=== PATIENT | female | born 1970 | race Caucasian/White ===

== ENCOUNTER 2019-06-07 08:33 | Outpatient (CLI) | payer OTHER, SELFPAY ==
--- NOTE | ~2019-06-07 | MM_ITS ---
EXAMINATION: MM screening rylee BI w ramon HISTORY: Screening mammogram TECHNIQUE: Craniocaudal and mediolateral oblique 3-D tomosynthesis images were obtained and synthetic 2-D images were generated. CAD analysis was submitted and interpreted. COMPARISON: 09/29/2016 BREAST PARENCHYMAL COMPOSITION: The breasts are heterogeneously dense, which may obscure small masses . FINDINGS: There is no evidence of suspicious mass, calcification, or architectural distortion to sugg est malignancy in either breast. There has been no suspicious interval change. IMPRESSION: 1. No mammographic evidence of malignancy. 2. Recommend routine screening mammography in one year. BI-RADS Category 1: Negative Reviewed, dictated and finalized at location A. 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
== END 2019-06-07 08:34 | disposition home or self-care (01) ==
LOC: CHSIMG 08:35
PROVIDERS: PCP Nurse Practitioner Family; Visit Provider Nurse Practitioner Family
DX: Z12.31 Encounter for screening mammogram for malignant neoplasm of breast (principal)
CPT/HCPCS: 77063; 77067

== ENCOUNTER 2020-05-29 11:01 | Outpatient (NON) | payer OTHER, SELFPAY | END 2020-05-29 11:02 | LOC: CHSLAB 11:02 | PROVIDERS: Visit Provider Nurse Practitioner Family | DX: Z12.4 Encounter for screening for malignant neoplasm of cervix (principal) | CPT/HCPCS: 87480; 87510; 87624; 87625; 87660; 88175; G0145 ==

== ENCOUNTER 2020-06-21 11:27 | Emergency (ER) | payer OTHER, SELFPAY ==
--- NOTE | ~2020-06-21 | CT_ITS ---
EXAMINATION: CT knee LT wo con EXAM DATE: 06/21/2020 12:08 INDICATION: Initial encounter following injury, with pain of the left knee. Fracture. TECHNIQUE: Spiral CT knee LT wo con was performed without contrast. Axial, coronal and sagittal rachana ges were reviewed. The dose-length product (DLP) for this examination was 464.90 mGy-cm. The exposu re was tailored according to patient size (auto mA exposure control), and iterative reconstruction (A SIR) was used as additional dose reduction technique. There is no prior study for comparison. FINDINGS: There is acute closed posttraumatic fracture at the posterior aspect left lateral tibial pl ateau, essentially nondisplaced. There is a moderate-sized knee joint effusion/hemarthrosis. The fibu la, femur, patella are intact. Musculature is unremarkable. Only small amount of subcutaneous edema. IMPRESSION: Acute nondisplaced left tibial lateral plateau fracture posteriorly. Effusion/hemarthros is. Reviewed, dictated and finalized at location A. 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 Effusion/hemarthrosis.
[2020-06-21 11:35] VITALS: BP 136/96; PULSE 86; RESP 20; TEMP 36.7; O2SAT 95
[2020-06-21] MEDS: KETOROLAC (*BKC) 60 MG/2 ML VIAL IM (12:21)
[2020-06-21] MEDS: DEXAMETHASONE 4 MG TABLET 12 MG PO (12:21)
--- NOTE | 2020-06-21 12:53 | ED.LOWEXIN ---
HPI - Extremity Injury (Lower) General Chief Complaint: Extremity Injury, Lower Stated Complaint: Left Knee Source: patient Mode of arrival: ambulatory Limitations: no limitations History of Present Illness HPI Narrative: Patient states she jumped off something about 3-4 foot high yesterday. Since the jump she has had pain below her left knee, and also lateral and superior to the left knee. Pain has been sharp, moderately severe and ongoing. Pain has not been relieved by otc ibuprofen. Pain is worse with activity, weight bearing, decreased with rest. Place: home Severity: moderate Relieving factors: rest Exacerbating factors: weight bearing Context: jumping Associated symptoms: swelling Other symptoms: none Treatments prior to arrival: NSAIDS Related Data Home Medications Medication Instructions Recorded Confirmed bupropion HCl 300 mg PO DAILY 06/21/20 06/21/20 doxycycline hyclate 100 mg PO DAILY 06/21/20 06/21/20 famotidine 40 mg PO DAILY 06/21/20 06/21/20 Allergies Allergy/AdvReac Type Severity Reaction Status Date / Time salicylates Allergy Intermediate unknown Verified 06/10/20 10:11 Review of Systems Constitutional: Constitutional: Reports no additional constitutional complaints Eyes: Eyes: Reports no additional eye complaints ENT: Reports system reviewed and no additional complaints, except as documented Cardiovascular: Cardiovascular: Reports no additional cardiovascular complaints Respiratory: Respiratory: Reports no additional respiratory complaints Gastrointestinal: Gastrointestinal: Reports no additional gastrointestinal complaints Genitourinary: Genitourinary: Reports no additional female genitourinary complaints Musculoskeletal: Musculoskeletal: Reports no additional musculoskeletal complaints Integumentary/Breasts: Skin/Breast: Reports system reviewed and no additional complaints, except as docu Neurologic: Reports system reviewed and no additional complaints, except as documented Psychiatric: Psychiatric: Reports no additional psychiatric complaints Endocrine: Endocrine: Reports no additional endocrine complaints Hematologic/Lymphatic: Hematologic/Lymphatic: Reports no additional hematologic/lymphatic complaints Allergic/Immunologic: Allergic/Immunologic: Reports no additional allergic/immunologic complaints PMFSH Past Medical History Medical History Chronic back pain Depression Hidradenitis suppurativa HPV (human papilloma virus) infection No active medical problems Overweight Tobacco dependence Vaginal delivery x 2 Surgical History Surgical History H/O bladder repair surgery H/O section History of cholecystectomy History of tubal ligation Family History Family History Father , father of some type of cancer Cerebrovascular accident Mother Hypertension Social History Social History Smoking status: Current every day smoker Additional smoking assessment comments: smokes 1 pack per day Substance use type: does not use Gender identity (if verbalized by the patient): Female Exam Const: General: no acute distress and alert Orientation/consciousness: patient oriented x3 HENMT: Head: normal to inspection Ears: external ears normal and TM's normal bilaterally General nose exam: Normal external nose present Face and sinus: normal facial exam Mouth: Yes moist mucous membranes Throat: posterior oropharynx normal Eyes: Conjunctivae: conjunctivae normal Neck: Neck: normal visual inspection and no lymphadenopathy Chest: Chest palpation & inspection: normal inspection of the chest Resp: Effort & Inspection: normal respiratory effort Auscultation: clear to auscultation bilaterally Cardio: Rate: regular rate Rhythm: regular rhythm GI
[2020-06-21 13:20] VITALS: RESP 17
== END 2020-06-21 13:20 | disposition home or self-care (01) ==
PROVIDERS: Emergency Provider Emergency Medicine; PCP Nurse Practitioner Family
DX: S82.142A Displaced bicondylar fracture of left tibia, initial encounter for closed fracture (principal); W17.89XA Other fall from one level to another, initial encounter
CPT/HCPCS: 73700; 96372; 99283; 99284; J1885; J8540; L1830

== ENCOUNTER 2020-07-06 07:50 | Outpatient (CLI) | payer OTHER, SELFPAY ==
--- NOTE | ~2020-07-06 | MMUS_ITS ---
EXAMINATION: MM diagnostic rylee BI w ramon, US breast RT limited HISTORY: Palpable lump in the upper outer quadrant of the right breast TECHNIQUE: Craniocaudal, mediolateral, and mediolateral oblique 3-D tomosynthesis images of the katharina ts were performed and synthetic 2-D images were generated. CAD analysis was submitted and interpreted . High resolution limited right breast ultrasound was performed. COMPARISON: 06/07/2019, 09/29/2016 BREAST PARENCHYMAL COMPOSITION: The breasts are heterogeneously dense, which may obscure small masses . FINDINGS: MAMMOGRAPHIC FINDINGS: There is no evidence of suspicious mass, calcification, or architectural distortion in either breast to suggest malignancy. There has been no suspicious interval change. No mammographic correlate is id entified for the reported palpable abnormality of the right breast. ULTRASOUND: There is a 3 mm x 2 mm hypoechoic mass involving the skin at the 10:00 location 6 cm from the nipple in the area of the patient's palpable abnormality. There appears to be a thin tract to the skin surfa ce, findings are most consistent with a sebaceous cyst. IMPRESSION: 1. Imaging findings consistent with sebaceous cyst of the right breast corresponding to the palpable abnormality of concern. No mammographic or sonographic evidence of malignancy. Further evaluation at this time should be based on clinical assessment. Continued follow-up physical examination is recomme nded. 2. Recommend routine screening mammography in one year. BI-RADS Category 2: Benign finding(s). Reviewed, dictated and finalized at location A. IMPRESSION: 1. Imaging findings consistent with sebaceous cyst of the right breast correspo nding to the palpable abnormality of concern. No mammographic or sonographic ev idence of malignancy. Further evaluation at this time should be based on clinic al assessment. Continued follow-up physical examination is recommended. 2. Recommend routine screening mammography in one year. BI-RADS Category 2: Benign finding(s).
--- NOTE | ~2020-07-06 | US_ITS ---
EXAMINATION: US pelvic complete w TV DATE: 07/06/2020 09:23 INDICATION: Pelvic and perineal pain Comparison:No prior studies for comparison. TECHNIQUE: Multiple transabdominal and endovaginal sonographic images of the pelvis performed. FINDINGS: The uterus measures 7.4 x 3.9 x 4.7 cm. There is a nabothian cysts. The endometrial complex measures 6 mm. The right ovary measures 2.1 x 2.3 x 1.2 cm and the left ovary measures 2.4 x 1.2 x 1.8 cm. There ar e small follicles in each ovary. Normal doppler signal in both ovaries. There is no free fluid in the pelvis. There are no abnormal masses seen on either side. IMPRESSION: 1. Unremarkable pelvic ultrasound. Reviewed, dictated and finalized at location A.
== END 2020-07-06 07:51 | disposition home or self-care (01) ==
LOC: CHSIMG 07:53
PROVIDERS: PCP Nurse Practitioner Family; Visit Provider Student in an Organized Health Care Education/Training Program
DX: N63.10 Unspecified lump in the right breast, unspecified quadrant (principal)
CPT/HCPCS: 76642; 76830; 76856; 77062; 77066; G0279

== ENCOUNTER 2020-07-27 08:25 | Outpatient (CLI) | payer OTHER, SELFPAY ==
--- NOTE | ~2020-07-27 | XR_ITS ---
EXAMINATION: XR knee LT 2V DATE: 07/27/2020 08:40 INDICATION: Left knee pain. TECHNIQUE: 2 views of left knee were obtained. COMPARISON: None. FINDINGS: Bone alignment is normal. No fracture. There is mild osteoarthritis of patellofemoral cynthia rtment. No knee joint effusion. IMPRESSION: 1. Mild left knee osteoarthritis. Reviewed, dictated and finalized at location A.
== END 2020-07-27 08:26 | disposition home or self-care (01) ==
LOC: CHSIMG 08:27
PROVIDERS: PCP Nurse Practitioner Family; Visit Provider Orthopaedic Surgery
DX: M25.562 Pain in left knee (principal)
CPT/HCPCS: 73560

== ENCOUNTER 2020-08-31 07:57 | Outpatient (CLI) | payer OTHER, SELFPAY ==
--- NOTE | ~2020-08-31 | XR_ITS ---
XR knee LT 3V DATE: 08/31/2020 08:27 INDICATION: Fall 2 weeks ago. Left knee pain. History of left knee fracture 2 months ago TECHNIQUE: 3 views COMPARISON: 07/27/2020 left knee FINDINGS: No fracture or dislocation or joint effusion. No periosteal reaction or bone destruction, j oint space narrowing, radiopaque intra-articular loose body or chondrocalcinosis. Relatively well pre served. IMPRESSION: No significant abnormality of left knee Reviewed, dictated and finalized at location B.
== END 2020-08-31 07:58 | disposition home or self-care (01) ==
LOC: CHSIMG 07:59
PROVIDERS: PCP Nurse Practitioner Family; Visit Provider Orthopaedic Surgery
DX: M25.562 Pain in left knee (principal)
CPT/HCPCS: 73562

== ENCOUNTER 2020-12-02 10:21 | Outpatient (CLI) | payer OTHER, SELFPAY ==
--- NOTE | ~2020-12-02 | XR_ITS ---
EXAMINATION: XR knee LT 3V DATE: 12/02/2020 10:46 INDICATION: Left knee pain. TECHNIQUE: 3 views of left knee were obtained. COMPARISON: Left knee radiographs 08/31/2020 FINDINGS: Bone alignment is normal. No fracture. There is mild tricompartmental osteoarthritis charac terized by tiny marginal osteophytes. No knee joint effusion. IMPRESSION: 1. Mild left knee osteoarthritis. Reviewed, dictated and finalized at location B.
== END 2020-12-02 10:22 | disposition home or self-care (01) ==
LOC: CHSIMG 10:23
PROVIDERS: PCP Nurse Practitioner Family; Visit Provider Nurse Practitioner Family
DX: M25.562 Pain in left knee (principal)
CPT/HCPCS: 73562

== ENCOUNTER 2020-12-08 08:43 | Outpatient (RCR) | payer OTHER, SELFPAY ==
--- NOTE | 2020-12-08 09:56 | PTOPEVAL ---
Thank you for referring Suzanna Pulido to [facility].? The patient is scheduled to be seen for therapy? ____x/week for ___ weeks. Please review, sign, date and return this plan of care SANDRA. I agree with and certify that the following plan of care is medically necessary. Referring Physician Date Admitting Provider: Attending Provider: Angélica Cardona NP Referring Provider: *PT Outpatient Evaluation Start: 12/08/20 08:49 Freq: Status: Active Protocol: Document 12/08/20 08:49 ACR (Rec: 12/08/20 09:51 ACR [id number]) Therapy Assessment Status Assessment Status Assessment Status Evaluation Outpatient Past Medical History Respiratory History Hx Asthma Yes Hx Bronchitis Yes Hx Pleurisy Yes Gastrointestinal History Hx Cholecystectomy Yes Genitourinary History Hx Bladder Surgery Yes Musculoskeletal History Hx Arthritis Yes Hx Orthopedic Surgery Yes: HAND Integumentary History Hx Excision Skin Lesion Yes Reproductive History Hx Section Yes Hx Post Menopausal Yes Psychosocial History Hx Anxiety Yes Other History Hx MRSA Yes Evaluation Information Problem Diagnosis pain in L knee Onset 08/08/20 Subjective Information Patient states that she was Query Text:As Reported By Patient/ putting up gutters and jumped Family down and then fractured her tibia. She states that in the past 2 weeks her groin is started to bother her. She is having trouble turning over in bed because of the pain. The patient states that standing/ walking and sitting for a period of time cause the most pain. She states stairs are difficult as well. She has tried all home remedies and nothing takes the pain away. She got a recent x-ray which showed healing of the tibia plateau. Patient states her goal for therapy is for the pain to subside. 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
--- NOTE | 2021-03-09 11:46 | PTOPEVAL ---
Thank you for referring Suzanna Pulido to [facility].? I agree with and certify that the following plan of care is medically necessary. Referring Physician Date Admitting Provider: Attending Provider: Angélica Cardona NP Referring Provider: *PT Outpatient Evaluation Start: 12/08/20 08:49 Freq: Status: Active Protocol: Document 03/09/21 10:38 SAPNA (Rec: 03/09/21 11:45 SAPNA [id number]) Therapy Assessment Status Assessment Status Assessment Status Discharge Outpatient Past Medical History Neurological History Hx Neurological Disorders No Significant History Cardiovascular History Hx Cardiac Disorders No Significant History Respiratory History Hx Respiratory Disorders No Significant History Gastrointestinal History Hx Cholecystectomy Yes Hx Hemorrhoids Yes Genitourinary History Hx Bladder Surgery Yes Musculoskeletal History Hx Arthritis Yes Hx Fractures Yes: L. knee Hx Orthopedic Surgery Yes: R. hand Hx Other Musculoskeletal Disorders Yes: bulging disc L4 & L5 Hematological History Hx Hematological Disorders No Significant History Endocrine History Hx Endocrine Disorders No Significant History HEENT History Hx HEENT Disorders No Significant History Integumentary History Hx Excision Skin Lesion Yes: cyst on r. breast Reproductive History Hx Section Yes Hx Post Menopausal Yes Psychosocial History Hx Anxiety Yes Hx Depression Yes Pain History Has Past Pain Affected Your Daily Life Yes: back Evaluation Information Problem Diagnosis left knee pain Onset 08/08/20 Subjective Information Pt. reports that she has been Query Text:As Reported By Patient/ dealing with COVID issues Family amongst multiple family members which has kept her from participating in therapy. She reports that the knee has not improved much, but does not recall doing her HEP at all. She reports she has been caring for her mother making it difficult to make time for exercise. She reports that pain continues to be most notable with standing and walking, but states that she will experience pain at rest. She also continues to describe
== END 2021-03-09 13:40 | disposition home or self-care (01) ==
LOC: CHSPT 08:43
PROVIDERS: PCP Nurse Practitioner Family; Visit Provider Nurse Practitioner Family
DX: M25.562 Pain in left knee (principal)
CPT/HCPCS: 97014; 97110; 97161; G0283

== ENCOUNTER 2021-02-01 09:48 | Outpatient (CLI) | payer OTHER, SELFPAY ==
[2021-02-01 11:15] LABS: SARS-CoV-2 RNA PCR Negative (Negative)
== END 2021-02-01 09:49 | disposition home or self-care (01) ==
LOC: CHSLAB 09:51
PROVIDERS: PCP Nurse Practitioner Family; Visit Provider Nurse Practitioner Family
DX: Z20.822 Contact with and (suspected) exposure to COVID-19 (principal)
CPT/HCPCS: C9803; U0003; U0005

== ENCOUNTER 2021-03-16 13:30 | Outpatient (CLI) | payer OTHER, SELFPAY ==
--- NOTE | ~2021-03-16 | XR_ITS ---
XR hip LT min 2V 03/16/2021 14:01 Indication: Left hip pain Procedure: 2 views left hip Comparison: No prior studies for comparison. Findings: There is mild-moderate osteoarthritis of the left hip. No fracture, subluxation or dislocat ion. No significant soft tissue abnormality. No foreign bodies. Impression: 1: Mild-moderate osteoarthritis of the left hip. Reviewed, dictated and finalized at location A. GER ORGANIZATIONAL Impression: 1: Mild-moderate osteoarthritis of the left hip.
--- NOTE | ~2021-03-16 | XR_ITS ---
EXAMINATION: XR lumbar spine 2-3V DATE: 03/16/2021 14:00 INDICATION: Low back pain. TECHNIQUE: 3 views of lumbar spine were obtained. COMPARISON: Lumbar spine radiograph 09/15/2016, lumbar spine MRI 02/10/2018 FINDINGS: There is 4 degrees dextrocurvature of lumbar spine. There is 4 mm anterolisthesis of L4 on L5. Vertebral body heights are normal. There is moderately decreased disc height at L4-L5. There are endplate osteophytes at most levels. There is multilevel facet joint osteoarthritis, severe bilateral ly at L4-L5 and L5-S1. Surgical clips in the right upper quadrant are likely from cholecystectomy. IMPRESSION: 1. Moderate lower lumbar spondylosis. Reviewed, dictated and finalized at location A. [employer] TECH
== END 2021-03-16 13:31 | disposition home or self-care (01) ==
LOC: CHSIMG 13:32
PROVIDERS: PCP Nurse Practitioner Family; Visit Provider Nurse Practitioner Family
DX: M25.552 Pain in left hip (principal); M54.50 Low back pain, unspecified
CPT/HCPCS: 72100; 73502

== ENCOUNTER 2021-08-12 10:18 | Outpatient (CLI) | payer OTHER, SELFPAY ==
[2021-08-12 11:20] LABS: SARS-CoV-2 RNA PCR Negative (Negative)
== END 2021-08-12 10:19 | disposition home or self-care (01) ==
LOC: CHSLAB 10:21
PROVIDERS: PCP Nurse Practitioner Family; Visit Provider Nurse Practitioner Family
DX: Z20.822 Contact with and (suspected) exposure to COVID-19 (principal)
CPT/HCPCS: C9803; U0003; U0005

== ENCOUNTER 2021-09-07 08:33 | Outpatient (CLI) | payer OTHER, SELFPAY ==
--- NOTE | ~2021-09-07 | MM_ITS ---
EXAMINATION: MM screening rylee BI w ramon HISTORY: Screening mammogram TECHNIQUE: Craniocaudal and mediolateral oblique 3-D tomosynthesis images were obtained and synthetic 2-D images were generated. CAD analysis was submitted and interpreted. COMPARISON: 07/06/2020 bilateral diagnostic mammography and limited right breast ultrasound 06/07/2019, 09/29/2016 bilateral screening mammogram examinations BREAST PARENCHYMAL COMPOSITION: There are scattered areas of fibroglandular density. FINDINGS: Subtle small focal asymmetry is noted in the upper mid right breast; otherwise there is no evidence of suspicious mass, calcification, or architectural distortion to suggest malignancy in eith er breast. There has been no other suspicious interval change. IMPRESSION: 1. Subtle small asymmetry in upper mid right breast 2. Diagnostic right mammogram is recommended, with ultrasound if required BI-RADS Category 0: Incomplete: Needs additional imaging evaluation. Reviewed, dictated and finalized at location A.
== END 2021-09-07 08:34 | disposition home or self-care (01) ==
LOC: CHSIMG 08:34
PROVIDERS: PCP Nurse Practitioner Family; Visit Provider Student in an Organized Health Care Education/Training Program
DX: Z12.31 Encounter for screening mammogram for malignant neoplasm of breast (principal)
CPT/HCPCS: 77063; 77067

== ENCOUNTER 2021-09-21 08:53 | Outpatient (CLI) | payer OTHER, SELFPAY ==
--- NOTE | ~2021-09-21 | MM_ITS ---
EXAMINATION: MM diagnostic rylee RT w ramon HISTORY: Right breast asymmetry on screening mammogram TECHNIQUE: Additional 3-D tomosynthesis images of the right breast were performed and synthetic 2-D i mages were generated. CAD analysis was submitted and interpreted. COMPARISON: 09/07/2021, 07/06/2020, 06/07/2019 FINDINGS: There is a return to baseline fibroglandular appearance with spot compression of the right breast in the area questioned on screening mammogram. IMPRESSION: 1. No mammographic evidence of malignancy. 2. Recommend routine screening mammography in one year. BI-RADS Category 1: Negative Reviewed, dictated and finalized at location A.
== END 2021-09-21 08:54 | disposition home or self-care (01) ==
LOC: CHSIMG 08:54
PROVIDERS: PCP Nurse Practitioner Family; Visit Provider Student in an Organized Health Care Education/Training Program
DX: R92.8 Other abnormal and inconclusive findings on diagnostic imaging of breast (principal)
CPT/HCPCS: 77061; 77065; G0279

== ENCOUNTER 2021-10-25 03:10 | Day surgery (SDC) | payer OTHER, SELFPAY ==
[2021-10-08 15:08] VITALS: BMI 35.5
--- NOTE | 2021-10-25 07:07 | P.PNAN_ITS ---
Anes - Initial Pre Proc Eval Procedure: Operation Date: 10/25/21 08:30 Proposed Procedures p Screening Colonoscopy - Bryce Schmidt MD Date/Time: 10/25/21 07:07 Surgeon: Bryce Schmidt MD Pre Op Diagnosis: neoplasm screening Patient Data Age: 51 Gender: F Height: 1.6 m Weight: 91 kg Allergies Allergy/AdvReac Type Severity Reaction Status Date / Time No Known Allergies Allergy Verified 10/25/21 07:37 Home Medications Medication Instructions Recorded Confirmed Type bupropion HCl 300 mg 24 hr tablet, See Rx Instructions .Route 04/19/21 10/25/21 Rx extended release .COMPLEX #90 tabs omeprazole 20 mg capsule,delayed See Rx Instructions .Route 04/19/21 10/25/21 Rx release .COMPLEX #30 caps nicotine 10 mg/mL nasal spray 1 spray intranasal Q20M PRN 08/18/21 10/25/21 Rx (Nicotrol NS) nicotine cravings #40 mL famotidine 40 mg tablet 40 tablet PO DAILY 10/08/21 10/25/21 History Patient hx anesthesia problems: none Family hx anesthesia problems: none Results Review: All pre-operative results and documents have been reviewed as part of the pre- operative evaluation. [facility] Past Medical History Medical History (Updated 10/25/21 @ 08:33 by Bryce Schmidt MD) Abnormal cervical Papanicolaou smear 06/10/20 LSIL Anxiety Chronic back pain Depression GERD (gastroesophageal reflux disease) Hidradenitis suppurativa HPV (human papilloma virus) infection Overweight Tobacco dependence Vaginal delivery x 2 Surgical History Surgical History H/O bladder repair surgery H/O section x1 History of cholecystectomy History of tubal ligation Family History Family History Father , father of some type of cancer Cerebrovascular accident Mother Hypertension Social History Social History Smoking packs per day: 1 Smoking cigarettes per day: 20.0 Years smoked: 30 Smoking pack-years: 30.00 Smoking status: Current every day smoker Tobacco type: cigarettes Additional smoking assessment comments: smokes 1 pack per day Alcohol intake: never Alcohol use details: denies alcohol use Substance use: never Substance use type: does not use Living arrangements: with family Gender identity (if verbalized by the patient): Female Sexual Orientation (if Verbalized by the Patient): Straight or Heterosexual Spiritual care concerns: No Anes - Eval Final PreProcedure Day of Procedure 10/25/21 07:07 Patient weight: obese Heart: regular rate and rhythm Lungs: clear to auscultation Airway: Mallampati scale class II Neurological: alert and oriented Last oral intake: >/= 8 hours ASA classification: III Emergent: no Anesthetic plan: proceed Anesthesia type and monitoring: general GIVS and standard monitoring Results Review: All pre-operative results and documents have been reviewed as part of the pre- operative evaluation. Informed Consent: The patient's anesthetic plan and its attendant risks and benefits were discussed with the patient/family/POA. Questions were solicited and answers provided to the satisfaction of the patient/family/POA.
[2021-10-25] MEDS: LACTATED RINGERS 1,000 ML 150 ML IV CONT (07:45)
[2021-10-25 07:46] VITALS: BP 127/74; PULSE 65; RESP 16; TEMP 36.1; O2SAT 100; BMI 35.4
--- NOTE | 2021-10-25 08:32 | WPDGICN ---
Assessment and Plan Assessment and plan (1) Family history of colonic polyps: Code(s): Z83.71 - Family history of colonic polyps Status: Acute Assessment and Plan: Patient has a family history of colon polyps in her mother and colon cancer in her grandmother. Suggest follow-up colonoscopy at 5 year intervals. Further recommendations may be given after endoscopy. GI Consult Note Consult date/time: 10/25/21 08:32 Reason for consult: Neoplasia screening. HPI: Suzanna Pulido is a 51 year old female Presents for screening colonoscopy. Patient reports that her current weight appetite and bowel movements are normal. She denies abdominal pain. She has had no bleeding. Family history is significant that her mother had colon polyps in her grandmother had colon cancer. Patient presents today for neoplasia screening. Review of Systems Review of Systems: Review of systems noncontributory. [facility] Past Medical History Medical History (Updated 10/25/21 @ 08:33 by Bryce Schmidt MD) Abnormal cervical Papanicolaou smear 06/10/20 LSIL Anxiety Chronic back pain Depression GERD (gastroesophageal reflux disease) Hidradenitis suppurativa HPV (human papilloma virus) infection Overweight Tobacco dependence Vaginal delivery x 2 Surgical History Surgical History H/O bladder repair surgery H/O section x1 History of cholecystectomy History of tubal ligation Family History Family History Father , father of some type of cancer Cerebrovascular accident Mother Hypertension Social History Social History Smoking packs per day: 1 Smoking cigarettes per day: 20.0 Years smoked: 30 Smoking pack-years: 30.00 Smoking status: Current every day smoker Tobacco type: cigarettes Additional smoking assessment comments: smokes 1 pack per day Alcohol intake: never Alcohol use details: denies alcohol use Substance use: never Substance use type: does not use Living arrangements: with family Gender identity (if verbalized by the patient): Female Sexual Orientation (if Verbalized by the Patient): Straight or Heterosexual Spiritual care concerns: No Meds Home Medications and Allergies Home Medications Medication Instructions Recorded Confirmed Type bupropion HCl 300 mg 24 hr tablet, See Rx Instructions .Route 04/19/21 10/25/21 Rx extended release .COMPLEX #90 tabs omeprazole 20 mg capsule,delayed See Rx Instructions .Route 04/19/21 10/25/21 Rx release .COMPLEX #30 caps nicotine 10 mg/mL nasal spray 1 spray intranasal Q20M PRN 08/18/21 10/25/21 Rx (Nicotrol NS) nicotine cravings #40 mL famotidine 40 mg tablet 40 tablet PO DAILY 10/08/21 10/25/21 History Allergies Allergy/AdvReac Type Severity Reaction Status Date / Time No Known Allergies Allergy Verified 10/25/21 07:37 Vital Signs Vital Signs - 24 hr 10/25/21 07:46 Temperature 97.0 F L Pulse Rate 65 Respiratory Rate 16 Blood Pressure 127/74 Pulse Oximetry 100 Oxygen Delivery Room Air Exam Narrative: Physical exam reveals patient to be alert. Vital signs stable. HEENT exam is unremarkable. Patient is anicteric. Lungs are clear to auscultation and percussion. Heart is without murmur or extra sounds. Abdominal exam bowel sounds are present soft nontender with no organomegaly. Digital external rectal exam is normal.
[2021-10-25 09:02] VITALS: BP 93/60; PULSE 76; RESP 17; O2SAT 93
[2021-10-25 09:12] VITALS: BP 103/72; PULSE 70; RESP 25; O2SAT 98
[2021-10-25 09:22] VITALS: BP 108/61; PULSE 72; RESP 25; O2SAT 97
== END 2021-10-25 09:40 | disposition home or self-care (01) ==
PROVIDERS: PCP Nurse Practitioner Family; Visit Provider Internal Medicine Gastroenterology
PROC: 0DJD8ZZ Inspection of Lower Intestinal Tract, Via Natural or Artificial Opening Endoscopic (ICD-10-PCS; CPT 45378; principal; 2021-10-25 08:30)
DX: Z12.11 Encounter for screening for malignant neoplasm of colon (principal); D12.5 Benign neoplasm of sigmoid colon; K64.8 Other hemorrhoids; Z83.71 Family history of colonic polyps; K21.9 Gastro-esophageal reflux disease without esophagitis; F17.210 Nicotine dependence, cigarettes, uncomplicated
CPT/HCPCS: 45385; 88305; J2704; J7120

== ENCOUNTER 2021-11-16 08:43 | Outpatient (CLI) | payer OTHER, SELFPAY ==
[2021-11-16 09:49] LABS: SARS-CoV-2 RNA PCR Positive (Negative)
== END 2021-11-16 08:44 | disposition home or self-care (01) ==
LOC: CHSLAB 08:48
PROVIDERS: PCP Nurse Practitioner Family; Visit Provider Nurse Practitioner Family
DX: U07.1 COVID-19 (principal)
CPT/HCPCS: C9803; U0003; U0005

== ENCOUNTER 2021-11-22 08:26 | Outpatient (CLI) | payer OTHER, SELFPAY ==
[2021-11-22 09:25] LABS: SARS-CoV-2 RNA PCR Positive (Negative)
== END 2021-11-22 08:27 | disposition home or self-care (01) ==
LOC: CHSLAB 08:29
PROVIDERS: PCP Nurse Practitioner Family; Visit Provider Nurse Practitioner Family
DX: U07.1 COVID-19 (principal)
CPT/HCPCS: C9803; U0003; U0005

== ENCOUNTER 2022-11-26 08:52 | Outpatient (CLI) | payer OTHER, SELFPAY ==
[2022-11-30 22:48] LABS: Vitamin D 25 Hydroxy 55 ng/mL (30-100)
== END 2022-11-26 08:53 | disposition home or self-care (01) ==
LOC: CHSLAB 08:54
PROVIDERS: PCP Nurse Practitioner Family; Visit Provider Nurse Practitioner Family
DX: E55.9 Vitamin D deficiency, unspecified (principal)
CPT/HCPCS: 36415; 82306

== ENCOUNTER 2023-01-17 10:25 | Outpatient (CLI) | payer OTHER, SELFPAY ==
--- NOTE | ~2023-01-17 | XR_ITS ---
EXAMINATION: XR foot RT min 3V DATE: 01/17/2023 11:08 INDICATION: Right foot pain. TECHNIQUE: 4 views of right foot were obtained. COMPARISON: Right foot radiograph 12/01/2016 FINDINGS: There is mild hallux valgus. No fracture. There is mild osteoarthritis of first metatarsoph alangeal joint and some of the midfoot joints. There is heterotopic ossification distal to medial mal leolus. There are enthesophytes at the posterior and plantar aspects of calcaneal tuberosity. IMPRESSION: 1. Mild particular osteoarthritis. 2. Mild hallux valgus. Reviewed, dictated and finalized at location E.
== END 2023-01-17 10:26 | disposition home or self-care (01) ==
LOC: CHSIMG 10:27
PROVIDERS: PCP Nurse Practitioner Family; Visit Provider Family Medicine
DX: M79.671 Pain in right foot (principal); M19.071 Primary osteoarthritis, right ankle and foot; M20.11 Hallux valgus (acquired), right foot
CPT/HCPCS: 73630

== ENCOUNTER 2023-01-25 08:42 | Outpatient (CLI) | payer OTHER, SELFPAY ==
--- NOTE | ~2023-01-25 | US_ITS ---
EXAMINATION: US pelvic complete w TV DATE: 01/25/2023 09:09 INDICATION: Vaginal spotting. Postmenopausal. Comparison:Ultrasound dated 07/06/2020 TECHNIQUE: Multiple transabdominal and endovaginal sonographic images of the pelvis performed. FINDINGS: The uterus measures 7.6 x 4.7 x 3.4 cm. In the uterus is suboptimally visualized due to pos ition of the uterus and overlying bowel. The endometrial complex measures 6. The ovaries are not visualized. There is no free fluid in the pelvis. There are no abnormal masses seen on either side. IMPRESSION: 1. Thickened endomtrial complex. The differential diagnosis includes endometrial hyperplasia, polyp a nd carcinoma. Biopsy is recommended. Reviewed, dictated and finalized at location B. IMPRESSION: 1. Thickened endomtrial complex. The differential diagnosis includes endometria l hyperplasia, polyp and carcinoma. Biopsy is recommended.
== END 2023-01-25 08:43 | disposition home or self-care (01) ==
LOC: CHSIMG 08:43
PROVIDERS: PCP Nurse Practitioner Family; Visit Provider Family Medicine
DX: N95.0 Postmenopausal bleeding (principal); R93.89 Abnormal findings on diagnostic imaging of other specified body structures
CPT/HCPCS: 76830; 76856

== ENCOUNTER 2023-02-08 02:14 | Day surgery (SDC) | payer OTHER, SELFPAY ==
[2023-01-27 13:10] VITALS: BMI 36.6
--- NOTE | 2023-01-27 13:11 | PC.NURSE ---
Report to the Outpatient Waiting Room, entrance under the green pavilion located off [facility], at time _0600_ on date _[id number]_. Planned Procedure Time: _0730_. Time changes happen often and if your time is changed the preop area will call you the afternoon before. - You and your visitor will be asked to self-screen and do not enter if you have any COVID symptoms. - A mask is optional within the hospital at this time. Patients may have clear liquids (water, carbonated beverages, clear teas, apple juice) until 3 hours prior to surgery with a maximum of 20 ounces. - No food from midnight until time of surgery Take the following medications with a SIP of water the morning of surgery: ____None DO NOT STOP ANY OF YOUR OTHER PRESCRIPTION MEDICATIONS PRIOR TO SURGERY ?EXCEPT THE FOLLOWING Medications to discontinue per physician ____Vitamins Date to take last pekv___[id number] Please no make-up, nail canadian, hairspray, perfume, deodorant, or body powder the day of surgery. No jewelry (including any body piercings) or valuables the day of surgery, leave them at home. Please take a shower or bath the night before, or the morning of, surgery with an antibacterial soap. Wear comfortable, loose fitting clothing. - Jewelry must be removed prior to entering the operating room. Rings and piercings that are not removed may be cut off. - The hospital will not accept responsibility for valuables. - Please leave all valuables, including medications, at home the day of surgery. If you are going home after surgery, a licensed gravel truck driver must drive you home. - NO public transportation without another adult if you receive anesthesia. - We recommend that an adult stay with you for 24 hours following discharge. - We also recommend that you do not drive, make important decision, drink alcoholic beverages, or take any drugs that were not prescribed by your health care provider for at least 24 hours after your discharge time. Follow any additional instructions given to you from your surgeon. If you or anyone in your household have experienced Covid symptoms in the past week, please notify your surgeon or the nurse liaison at the phone number below for possible testing. Telephone instructions given to _Suzanna__and asked if any additional questions and then verbalized understanding. Patient advised to call surgeon office or pre surgery nurse liaison [phone] if any additional questions.
--- NOTE | 2023-02-07 12:49 | WPDANESEPPF ---
Anes - Initial Pre Proc Eval Procedure: Operation Date: 02/08/23 07:30 Proposed Procedures p Hysteroscopy Dilation and Curettage, Removal of any Endometrial Lesion, If necessary - Dexter Tavarez MD Date/Time: 02/07/23 12:49 Surgeon: Dexter Tavarez MD Pre Op Diagnosis: Post Menopausal Bleeding Patient Data Age: 52 Gender: F Height: 1.57 m Weight: 90.9 kg Allergies Allergy/AdvReac Type Severity Reaction Status Date / Time No Known Allergies Allergy Verified 02/08/23 06:08 Home Medications Medication Instructions Recorded Confirmed Type cholecalciferol (vitamin D3) 1,250 1,250 mcg PO WEEKLY #12 caps 09/26/22 02/08/23 Rx mcg (50,000 unit) capsule multivitamin 1 tablet PO DAILY 01/27/23 02/08/23 History Patient hx anesthesia problems: none Family hx anesthesia problems: none Results Review: All pre-operative results and documents have been reviewed as part of the pre-operative evaluation. [facility] Past Medical History Medical History Abnormal cervical Papanicolaou smear 06/10/20 LSIL Anxiety Chronic back pain Depression GERD (gastroesophageal reflux disease) Hidradenitis suppurativa HPV (human papilloma virus) infection Overweight Tobacco dependence Vaginal delivery x 2 Surgical History Surgical History H/O bladder repair surgery H/O section x1 History of cholecystectomy History of tubal ligation Family History Family History Father , father of some type of cancer Cerebrovascular accident Mother Hypertension Social History Social History (Updated 11/09/22 @ 13:31 by Alyssia Polanco) Smoking packs per day: 1 Smoking cigarettes per day: 20.0 Years smoked: 20 Smoking pack-years: 20.00 Smoking status: Current every day smoker Tobacco type: cigarettes Additional smoking assessment comments: smokes 1 pack per day Alcohol intake: never Alcohol use details: denies alcohol use Substance use: never Substance use type: does not use Lack of Transportation: No Lack of Food: Never True Current Housing: I Have Housing Concerned About Future Housing: No Difficulty Paying Gas/Electric Bills: No Difficulty Paying for Meds: No Currently Unemployed: YES Education: Grade School Living arrangements: with family Gender identity (if verbalized by the patient): Female Sexual Orientation (if Verbalized by the Patient): Straight or Heterosexual Spiritual care concerns: No Anes - Eval Final PreProcedure Day of Procedure 02/07/23 12:49 Patient weight: obese Heart: regular rate and rhythm Lungs: clear to auscultation Airway: Mallampati scale class II Neurological: alert and oriented Last oral intake: >/= 8 hours ASA classification: III Emergent: no Anesthetic plan: proceed Anesthesia type and monitoring: general GIVS and standard monitoring Results Review: All pre-operative results and documents have been reviewed as part of the pre-operative evaluation. Informed Consent: The patient's anesthetic plan and its attendant risks and benefits were discussed with the patient/family/POA. Questions were solicited and answers provided to the satisfaction of the patient/family/POA.
[2023-02-08] MEDS: ACETAMINOPHEN 500 MG TABLET 1000 MG PO (06:16)
[2023-02-08] MEDS: LACTATED RINGERS 1,000 ML 30 ML IV CONT (06:28)
[2023-02-08 06:52] VITALS: BP 129/72; PULSE 65; RESP 16; TEMP 36.6; O2SAT 98
--- NOTE | 2023-02-08 07:18 | PM.IMHP ---
H&P: HPI History of Present Illness Date/Time: 02/08/23 07:18 Chief Complaint: Thickened endometrial stripe Narrative: HPI Office Procedure ? She is here for evaluation of postmenopausal bleeding.? She has been postmenopausal since approximately age 48 or before.? She states on January 10 she had a 3 day.? She did have some mild cramping denies any premenstrual symptoms.? She is not sexually active.? She was not doing any other type of vigorous activity.?She did have an ultrasound today she was informed that it did show that the endometrial lining is mildly thickened discussed the normal range that is suspected for post menopause. She was recommended for endometrial sampling and discussed options and she opted for Hysteroscopy D and C and removal of lesion if present. Review of Systems Review of Systems: All systems reviewed & are unremarkable except as noted in HPI and below Cardiovascular: Cardiovascular: Reports no additional cardiovascular complaints, Denies chest pain and Denies dyspnea Respiratory: Respiratory: Reports no additional respiratory complaints and Denies dyspnea Gastrointestinal: Gastrointestinal: Reports abdominal pain, Denies change in bowel habits, Denies diarrhea, Denies nausea and Denies vomiting Genitourinary: Genitourinary: Reports pelvic pain Musculoskeletal: Musculoskeletal: Reports back pain Integumentary/Breasts: Skin/Breast: Reports system reviewed and no additional complaints, except as docu Neurologic: Reports system reviewed and no additional complaints, except as documented PMFSH Past Medical History Medical History Abnormal cervical Papanicolaou smear 06/10/20 LSIL Anxiety Chronic back pain Depression GERD (gastroesophageal reflux disease) Hidradenitis suppurativa HPV (human papilloma virus) infection Overweight Tobacco dependence Vaginal delivery x 2 Surgical History Surgical History H/O bladder repair surgery H/O section x1 History of cholecystectomy History of tubal ligation Family History Family History Father , father of some type of cancer Cerebrovascular accident Mother Hypertension Social History Social History Smoking packs per day: 1 Smoking cigarettes per day: 20.0 Years smoked: 20 Smoking pack-years: 20.00 Smoking status: Current every day smoker Tobacco type: cigarettes Additional smoking assessment comments: smokes 1 pack per day Alcohol intake: never Alcohol use details: denies alcohol use Substance use: never Substance use type: does not use Lack of Transportation: No Lack of Food: Never True Current Housing: I Have Housing Concerned About Future Housing: No Difficulty Paying Gas/Electric Bills: No Difficulty Paying for Meds: No Currently Unemployed: YES Education: Grade School Living arrangements: with family Gender identity (if verbalized by the patient): Female Sexual Orientation (if Verbalized by the Patient): Straight or Heterosexual Spiritual care concerns: No Meds Home Medications and Allergies Home Medications Medication Instructions Recorded Confirmed Type cholecalciferol (vitamin D3) 1,250 1,250 mcg PO WEEKLY #12 caps 09/26/22 02/08/23 Rx mcg (50,000 unit) capsule multivitamin 1 tablet PO DAILY 01/27/23 02/08/23 History Allergies Allergy/AdvReac Type Severity Reaction Status Date / Time No Known Allergies Allergy Verified 02/08/23 06:08 Vital Signs Vital Signs - 24 hr 02/08/23 06:52 Temperature 97.9 F Pulse Rate 65 Respiratory Rate 16 Blood Pressure 129/72 Pulse Oximetry 98 Oxygen Delivery Room Air Exam Const: Orientation/consciousness: oriented to person and oriented to place HENMT: Head: norm
--- NOTE | 2023-02-08 07:21 | WPDHPUPDATE1 ---
History and Physical Update Update Date/Time: 02/08/23 07:21 History and Physical has been reviewed, including an updated exam of the patient. There are NO changes in the patient's condition. Risks, benefits, and alternatives have been discussed and questions answered. Patient agrees to proceed with procedure.
[2023-02-08] MEDS: ceFAZolin 2 GM/D5W 50 ML 2 GM/50 ML BAG IVPB (07:30)
[2023-02-08] MEDS: LIDOCAINE HCL 1% LOCAL INJ 20 ML VIAL 10 ML INFILTRATE (07:48)
--- NOTE | 2023-02-08 07:54 | W.PM.PROC2 ---
Procedure Note - Detailed Date of Procedure 02/08/23 Pre-op Diagnosis Post Menopausal Bleeding Thickened endometrial stripe Post-op Diagnosis Same Procedure Performed Diagnostic hysteroscopy and dilation and currettage Surgeon Dexter Tavarez MD Anesthesia MAC and Local Indications Postmenopausal bleeding and thickened endometrial stripe Findings Uterus sound to 7.5 cm, uterine cavity normal, no lesion, minimal tissue with curettage Description of Procedure After informed consent was obtained patient was taken to the operating room and adequate IV sedation was administered. Attention was turned to the vagina. Speculum was inserted. Single-tooth tenaculum placed on the anterior lip of the cervix. The uterus was sounded to 7.5 cm. The cervix was dilated to an 8 Cochran dilator. The hysteroscope was inserted into the cavity. The findings were a normal uterine cavity. The hysteroscope was removed. A curettage was performed with minimal tissue. Sponge count correct. The patient taken to recovery in stable condition. Estimated Blood Loss 5 Drains No Packing No Pathology Yes (scant endometrial curettings) Complications No immediate complications Condition Stable Disposition Same day [facility] Billing Surgery - Charge Forward: Surgery Billing
[2023-02-08 07:57] VITALS: BP 114/57; PULSE 70; RESP 12; O2SAT 92
[2023-02-08 08:25] VITALS: BP 119/62; PULSE 67; RESP 16; O2SAT 95
[2023-02-08] MEDS: oxyCODONE HCL (*CRX) 5 MG TAB IR PO (08:26)
[2023-02-08 08:55] VITALS: BP 107/60; PULSE 56; RESP 16
[2023-02-08 09:10] VITALS: BP 118/74; PULSE 57; RESP 16
== END 2023-02-08 09:19 | disposition home or self-care (01) ==
PROVIDERS: PCP Nurse Practitioner Family; Visit Provider Obstetrics & Gynecology
PROC: 0U5B8ZZ Destruction of Endometrium, Via Natural or Artificial Opening Endoscopic (ICD-10-PCS; CPT 58563; principal; 2023-02-08 07:30)
DX: N95.0 Postmenopausal bleeding (principal); F17.210 Nicotine dependence, cigarettes, uncomplicated; E66.9 Obesity, unspecified; Z68.36 Body mass index [BMI] 36.0-36.9, adult
CPT/HCPCS: 58558; 88305; A9270; J0690; J1100; J2250; J2405; J2704; J3010; J7120

== ENCOUNTER 2023-06-08 09:46 | Outpatient (CLI) | payer OTHER, SELFPAY ==
[2023-06-08 10:32] LABS: SARS-CoV-2 RNA PCR Negative (Negative)
[2023-06-08 10:47] LABS: Influenza A QL RT-PCR Negative (Negative); Influenza B QL RT-PCR Negative (Negative); RSV RNA, RT-PCR Negative (Negative)
== END 2023-06-08 09:47 | disposition home or self-care (01) ==
LOC: CHSLAB 09:47
PROVIDERS: PCP Nurse Practitioner Family; Visit Provider Nurse Practitioner Family
DX: R05.9 Cough, unspecified (principal); Z20.822 Contact with and (suspected) exposure to COVID-19
CPT/HCPCS: 87637

== ENCOUNTER 2023-09-14 08:39 | Outpatient (CLI) | payer OTHER, SELFPAY ==
--- NOTE | ~2023-09-14 | XR_ITS ---
Left foot Technique: AP, oblique, and lateral views were obtained. Clinical History: Heel pain Findings: No acute fracture or dislocation is seen. Osseous alignment is anatomic. Joint spaces are p reserved without erosive or degenerative change. Soft tissues are unremarkable. Impression: Unremarkable left foot radiographs. Reviewed, dictated and finalized at [facility]. Impression: Unremarkable left foot radiographs.
== END 2023-09-14 08:40 | disposition home or self-care (01) ==
LOC: CHSIMG 08:40
PROVIDERS: PCP Nurse Practitioner Family; Visit Provider Family Medicine
DX: M79.672 Pain in left foot (principal)
CPT/HCPCS: 73630